=== PATIENT | male | born 1965 | race Caucasian/White ===

== ENCOUNTER 2016-05-13 14:22 | Emergency (ER) | payer SELFPAY ==
[~2016-05-13 14:22] MED LIST: KEFLEX500 MG/CA1 PO
[2016-05-13] MEDS ORDERED: PROAIR HFA8.5 GM INH (17:59)
[2016-05-13] MEDS ORDERED: PREDNISONE10 M1 PO (17:59)
[2016-05-13] MEDS ORDERED: NORCO 5-325 TA1 EACH PO (18:05)
== END 2016-05-13 18:13 ==
LOC: EDMED 14:22
DX: J20.9 Acute bronchitis, unspecified (principal); M94.0 Chondrocostal junction syndrome [Tietze]; F17.210 Nicotine dependence, cigarettes, uncomplicated